=== PATIENT | female | born 1995 | race American Indian/Alaskan Native ===

== ENCOUNTER 2019-03-20 07:54 | Emergency (ER) | payer OTHER ==
[2019-03-20] MEDS ORDERED: PEPCID IV ONE (09:29)
[2019-03-20] MEDS ORDERED: ZOFRAN IV ONE (09:29)
[2019-03-20] MEDS ORDERED: NACL 0.9% 1000 ML 1,000 ML IV ONE (09:29)
[2019-03-20] MEDS ORDERED: TORADOL IV ONE (09:29)
[2019-03-20 10:11] LABS: Basophils % (Auto) 0.3 % (0.0-1.8); Eosinophils # (Auto) 0.1 K/mm3 (0.0-0.4); Eosinophils % (Auto) 0.7 % (0.0-4.3); Hematocrit 35.7 % (30.3-42.9); Hemoglobin 12.1 gm/dl (10.1-14.3); Lymphocytes # (Auto) 1.4 K/mm3 (1.2-5.4); Lymphocytes % (Auto) 16.3 % (13.4-35.0); Mean Corpuscular HGB Conc 34 % (30-34); Mean Corpuscular Volume 86 fl (79-97); Monocytes # (Auto) 0.7 K/mm3 (0.0-0.8); Monocytes % (Auto) 8.3 % (0.0-7.3); Platelet Count 271 K/mm3 (140-440); Red Blood Count 4.15 M/mm3 (3.65-5.03)
[2019-03-20 10:31] LABS: Alanine Aminotransferase 13 units/L (7-56); BUN/Creatinine Ratio 14; Blood Urea Nitrogen 11 mg/dL (7-17); Calcium 9.3 mg/dL (8.4-10.2); Hemolysis Index 3
--- NOTE | 2019-03-20 12:18 | Cat Scan Report ---
CT abdomen pelvis w con INDICATION / CLINICAL INFORMATION: Diffuse right abdominal pain with nausea, vomiting and diarrhea for 4 days. TECHNIQUE: The patient received 100 cc Isovue-[address] scans at this location are performed usi ng CT dose reduction for MOODYRA by means of automated exposure control. COMPARISON: None available. FINDINGS: ABDOMEN: The liver, spleen, gallbladder, bile ducts, pancreas, adrenal glands, and kidneys demonstrat e no significant abnormality. No adenopathy is seen. There is a small calcified granuloma in the righ t lower lobe. PELVIS: There is a mild amount of free fluid in the cul-de-sac. There are small bilateral ovarian cys ts which are likely physiologic. The uterus is normal. The distal ureters and urinary bladder are nor mal. There is mild increased fluid in small bowel loops in the lower abdomen and pelvis. I see no evidence of bowel wall thickening or obstruction. A normal appendix is present and there is no evidence of di verticulitis. I do not identify a hernia. No osseous abnormality is seen IMPRESSION: 1. Mild increase fluid in distal small bowel loops without significant wall thickening or obstruction . The findings may be related to a low-grade enteritis. 2. Mild free fluid in the cul-de-sac and small bilateral ovarian cysts are likely physiologic. Signer Name: Jason Sanchez MD Signed: 03/20/2019 12:13 PM Workstation Name: [id number]
--- NOTE | 2019-03-20 12:32 | Emergency Department Report ---
Vomiting/Diarrhea - HPI Chief Complaint: Abdominal Pain Stated Complaint: SHARP IN RT SIDE/RIB PAIN Time Seen by Provider: 03/20/19 09:16 Duration: 2 Days Severity: moderate Nausea/Vomiting Severity: Mild (with vomiting) Diarrhea Severity: Moderate Pain Location: Generalized Pain Severity: Moderate (crampy) Symptoms: Yes Watery Diarrhea, No Bloody diarrhea, No Fever, No Able to Tolerate Fluids, No Recent Unusual Foods, No Recent Untreated Water, No Recent use of Antibiotics, No Family w/ Similar Symptoms, No Contacts w/ Similar Symptoms, No Rash, No Hematuria, No Recent URI Symptoms ED Review of Systems ROS: Stated complaint: SHARP IN RT SIDE/RIB PAIN Other details as noted in HPI Comment: All other systems reviewed and negative ED Past Medical Hx - Past Medical History Previous Medical History?: No - Surgical History Past Surgical History?: No - Social History Smoking Status: Light Tobacco Smoker Substance Use Type: Alcohol, Marijuana - Medications Home Medications: Home Medications Medication Instructions Recorded Confirmed Last Taken Type Dicyclomine [Bentyl] 20 mg PO QID #10 tablet 03/20/19 Unknown Rx Diphenoxylate/Atropine [Lomotil] 1 tab PO Q4H PRN #10 tablet 03/20/19 Unknown Rx Ondansetron [Zofran Odt] 4 mg PO Q8HR #10 tab.rapdis 03/20/19 Unknown Rx traMADol [Ultram] 50 mg PO Q6HR PRN #10 tablet 03/20/19 Unknown Rx Vomiting Diarrhea Exam - Exam General: Vital signs noted. No distress. Alert and acting appropriately. HEENT: Yes Moist Mucous Membranes, No Pharyngeal Erythema, No Pharyngeal Exudates, No Rhinorrhea, No Conjuctival Injection, No Frontal Tenderness, No Maxillary Tenderness Neck: No Adenopathy, No Rigidity Lungs: Yes Clear Lung Sounds, Yes Good Air Exchange, No Wheezes, No Stridor, No Cough, No Nasal Flaring, No Retractions, No Use of Accessory Muscles Heart exam: Regular: Yes, Murmur: No, Tachycardia: No Abdomen: Tenderness: Yes (diffuse), Peritoneal Signs: No, Distention: No, Hyperactive Bowel sounds: No Skin exam: Rash: No, Edema: No, Normal turgor: Yes Neurologic: Alert and oriented, no deficits. Musculoskeletal: Unremarkable. ED Course Vital Signs 03/20/19 03/20/19 08:10 09:54 Temperature 98.5 F Pulse Rate 95 H Respiratory 18 16 Rate Blood Pressure 121/72 O2 Sat by Pulse 100 Oximetry ED Medical Decision Making - Lab Data Result diagrams: 03/20/19 09:38 03/20/19 09:38 Lab Results 03/20/19 03/20/19 03/20/19 Range/Units 09:38 09:38 09:38 WBC 8.4 (4.5-11.0) K/mm3 RBC 4.15 (3.65-5.03) M/mm3 Hgb 12.1 (10.1-14.3) gm/dl Hct 35.7 (30.3-42.9) % MCV 86 (79-97) fl MCH 29 (28-32) pg MCHC 34 (30-34) % RDW 14.0 (13.2-15.2) % Plt Count 271 (140-440) K/mm3 Lymph % (Auto) 16.3 (13.4-35.0) % [place] % (Auto) 8.3 H (0.0-7.3) % Eos % (Auto) 0.7 (0.0-4.3) % Baso % (Auto) 0.3 (0.0-1.8) % Lymph # 1.4 (1.2-5.4) K/mm3 [place] # 0.7 (0.0-0.8) K/mm3 Eos # 0.1 (0.0-0.4) K/mm3 Baso # 0.0 (0.0-0.1) K/mm3 Seg Neutrophils % 74.4 H (40.0-70.0) % Seg Neutrophils # 6.2 (1.8-7.7) K/mm3 Sodium 138 (137-145) mmol/L Potassium 4.9 (3.6-5.0) mmol/L Chloride 103.8 (98-107) mmol/L Carbon Dioxide 26 (22-30) mmol/L Anion Gap 13 mmol/L BUN 11 (7-17) mg/dL Creatinine 0.8 (0.7-1.2) mg/dL Estimated GFR > 60 ml/min BUN/Creatinine Ratio 14 % Glucose 84 (65-100) mg/dL Calcium 9.3 (8.4-10.2) mg/dL Total Bilirubin 0.20 (0.1-1.2) mg/dL AST 15 (5-40) units/L ALT 13 (7-56) units/L Alkaline Phosphatase 103 (35-129) units/L Total Protein 7.4 (6.3-8.2) g/dL Albumin 4.0 (3.9-5) g/dL Albumin/Globulin Ratio 1.2 % Lipase 23 (13-60) units/L HCG, Qual Negative (Negative) - Radiology Data [facility] [address] [id number] Cat Scan Report Signed Patient: DAYANA LEVY MR#: [id number] : 1995 Acct:[id number] Age/Sex: 24 / F ADM Date: 03/20/19 Loc: ED Attending Dr: Ordering Physician: SHIRLEY LAROSE MD Date of Service: 03/20/19 Procedure(s): CT abdomen pelvis w con Accession Number(s): [id number] cc: SHIRLEY LAROSE MD CT abdomen pelvis w con INDICATION / CLINICAL INFORMATION: Diffuse right abdominal pain with nausea, vomiting and diarrhea for 4 days. TECHNIQUE: The patient received 100 cc Isovue-[address] scans at this location are performed using CT dose reduction for ALARA by means of automated exposure control. COMPARISON: None available. FINDINGS: ABDOMEN: The liver, spleen, gallbladder, bile ducts, pancreas, adrenal glands, and kidneys demonstrate no significant abnormality. No adenopathy is seen. There is a small calcified granuloma in the right lower lobe. PELVIS: There is a mild amount of free fluid in the cul-de-sac. There are small bilateral ovarian cysts which are likely physiologic. The uterus is normal. The distal ureters and urinary bladder are normal. There is mild increased fluid in small bowel loops in the lower abdomen and pelvis. I see no evidence of bowel wall thickening or obstruction. A normal appendix is present and there is no evidence of diverticulitis. I do not identify a hernia. No osseous abnormality is seen IMPRESSION: 1. Mild increase fluid in distal small bowel loops without significant wall thickening or obstruction. The findings may be related to a low-grade enteritis. 2. Mild free fluid in the cul-de-sac and small bilateral ovarian cysts are likely physiologic. Signer Name: Jason Sanchez MD Signed: 03/20/2019 12:13 PM Workstation Name: [id number] Transcribed By: RT Dictated By: Jason Sanchez MD Electronically Authenticated By: Jason Sanchez MD Signed Date/Time: 03/20/19 1213 - Medical Decision Making Patient with a normal white count and a CT with no bowel wall thickening. The patient likely with viral gastroenteritis. Patient was hydrated given this for symptomatically relief and she is feeling some improvement. Patient be discharged home. Critical care attestation.: If time is entered above; I have spent that time in minutes in the direct care of this critically ill patient, excluding procedure time. ED Disposition Clinical Impression: Viral gastroenteritis Disposition: DC-01 TO HOME OR SELFCARE Is pt being admited?: No Does the pt Need Aspirin: No Condition: Stable Instructions: Gastroenteritis (ED) Referrals: JER CHISHOLM MD [Primary Care Provider] - 3-5 Days Time of Disposition: 12:31
[2019-03-20 12:47] VITALS: BP 120/76
== END 2019-03-20 12:48 | disposition home or self-care (01) ==
LOC: ED 07:54
DX: A08.4 Viral intestinal infection, unspecified (principal); F17.200 Nicotine dependence, unspecified, uncomplicated
CPT/HCPCS: 36415; 74177; 80053; 83690; 84703; 85025; 96361; 96374; 96375; 99284; J1885; J2405; J7030; Q9967

== ENCOUNTER 2019-04-19 20:22 | Emergency (ER) | payer OTHER ==
[2019-04-19 20:33] VITALS: BP 123/72
--- NOTE | 2019-04-19 20:52 | Event Note ---
ED Screening Note Date of service: 04/19/19 Time: 20:50 ED Screening Note: 24 y/o comes in for bilateral eye irritation time 1 week. This initial assessment/diagnostic orders/clinical plan/treatment(s) is/are subject to change based on patients health status, clinical progression and re-assessment by fellow clinical providers in the ED. Further treatment and workup at subsequent clinical providers discretion. Patient/guardian urged not to elope from the ED as their condition may be serious if not clinically assessed and managed. Initial orders include:
--- NOTE | 2019-04-19 22:39 | Emergency Department Report ---
[facility] Chief Complaint: Eye Problems Stated Complaint: BILATERAL PINK EYE Time Seen by Provider: 04/19/19 20:50 Duration: 5 Days Side: Bilateral Severity: moderate Symptoms: Yes Eye Itching, Yes Eye Redness, Yes Eye Pain, Yes Mucous Drainage, Yes Purulent Drainage, Yes H/O Allergic Rhinitis, Yes Fever, Yes Headache, No Blurred Vision, No Preceding URI, No Contact Lens Use, No Trauma Other History: pt presents for bilat pink eye x 1 week on cipro ophthal, pendin ophthal appointment, however complains of itching, eye mucus, yellow /green, pt denies fever or chills no dizziness no lightheadedness no ED Review of Systems ROS: Stated complaint: BILATERAL PINK EYE Other details as noted in HPI Constitutional: denies: chills, fever Eyes: denies: eye pain, eye discharge, vision change ENT: denies: ear pain, throat pain, hearing loss, epistaxis, congestion Respiratory: denies: cough, shortness of breath, SOB with exertion, SOB at rest, wheezing Cardiovascular: denies: chest pain Endocrine: no symptoms reported Gastrointestinal: denies: abdominal pain, nausea, vomiting, diarrhea Genitourinary: denies: urgency, dysuria, discharge Musculoskeletal: denies: back pain, joint swelling, arthralgia Skin: denies: rash, lesions Neurological: confusion. denies: weakness, paresthesias Psychiatric: denies: anxiety, depression Hematological/Lymphatic: denies: easy bleeding, easy bruising ED Past Medical Hx - Social History Smoking Status: Current Every Day Smoker Substance Use Type: None - Medications Home Medications: Home Medications Medication Instructions Recorded Confirmed Last Taken Type Dicyclomine [Bentyl] 20 mg PO QID #10 tablet 03/20/19 Unknown Rx Diphenoxylate/Atropine [Lomotil] 1 tab PO Q4H PRN #10 tablet 03/20/19 Unknown Rx Ondansetron [Zofran Odt] 4 mg PO Q8HR #10 tab.rapdis 03/20/19 Unknown Rx traMADol [Ultram] 50 mg PO Q6HR PRN #10 tablet 03/20/19 Unknown Rx Ibuprofen [Motrin 800 MG tab] 800 mg PO Q8HR PRN #30 tablet 04/19/19 Unknown Rx Ketotifen Fumarate [Zaditor] 2 drop OP BID #5 ml 04/19/19 Unknown Rx Polymyxin B Sulf/Trimethoprim 2 drops OP Q4H 10 Days #10 ml 04/19/19 Unknown Rx [Polytrim Eye Drops] [facility] Exam - Exam General: Vital signs noted. No distress. Alert and acting appropriately. Eye Exam: Both Injection, Both EOMI, Both Mucous Discharge, Neither Chemosis, Neither Abnormal Pupil, Neither Eye Foreign Body, Neither Lid Foreign Body HEENT: No Nasal Congestion, No Pharyngeal Erythema Remainder of HEENT: Normal Lungs: Yes Clear Lung Sounds, Yes Good Air Exchange, No Wheezes, No Stridor, No Cough, No Nasal Flaring, No Retractions, No Use of Accessory Muscles ED Course Vital Signs 04/19/19 20:27 Temperature 98.0 F Pulse Rate 89 Respiratory 16 Rate Blood Pressure 123/72 O2 Sat by Pulse 100 Oximetry ED Medical Decision Making - Medical Decision Making This is conjunctivitis, plan polytirm, zaditor ibuprofen, follow up with ophthalmolotist in 2-3 days return to ed if symptoms worsen , pt verbalized agreement and understanding of same. Critical care attestation.: If time is entered above; I have spent that time in minutes in the direct care of this critically ill patient, excluding procedure time. ED Disposition Clinical Impression: Conjunctivitis Qualifiers: Conjunctivitis type: acute Acute conjunctivitis type: viral Laterality: right Qualified Code(s): B30.9 - Viral conjunctivitis, unspecified Disposition: DC-01 TO HOME OR SELFCARE Is pt being admited?: No Does the pt Need Aspirin: No Condition: Stable Instructions: Conjunctivitis (ED) Prescriptions: Ibuprofen [Motrin 800 MG tab] 800 mg PO Q8HR PRN #30 tablet PRN Reason: Pain , Severe (7-10) Polymyxin B Sulf/Trimethoprim [Polytrim Eye Drops] 2 drops OP Q4H 10 Days #10 ml Ketotifen Fumarate [Zaditor] 2 drop OP BID #5 ml Referrals: JER CHISHOLM MD [Primary Care Provider] - 3-5 Days MOISES BROWN MD [Staff Physician] - 3-5 Days Forms: Work/School Release Form(ED) Time of Disposition: 22:45
== END 2019-04-19 22:50 | disposition home or self-care (01) ==
LOC: ED 20:22
DX: H10.9 Unspecified conjunctivitis (principal); F17.200 Nicotine dependence, unspecified, uncomplicated; Z79.899 Other long term (current) drug therapy
CPT/HCPCS: 99282

== ENCOUNTER 2019-07-28 19:46 | Emergency (ER) | payer MEDICAID, OTHER ==
[2019-07-28 19:53] VITALS: BP 108/67
--- NOTE | 2019-07-28 20:22 | Emergency Department Report ---
Blank Doc - Documentation Documentation: 24-year-old female that presents with abdominal pain. Denies any n/v or vaginal bleeding. Stated is 9 weeks . Has OBGYN but never had ultrasound before. This initial assessment/diagnostic orders/clinical plan/treatment(s) is/are subject to change based on patient's health status, clinical progression and re- assessment by fellow clinical providers in the ED. Further treatment and workup at subsequent clinical providers discretion. Patient/guardians urged not to elope from the ED as their condition may be serious if not clinically assessed and managed. Initial orders include: 1- Patient sent to [facility] for further evaluation and treatment 2- labs 3- UA 4- US OB
[2019-07-28 21:18] LABS: Bacteria,Urine 1+ /HPF (Negative); Bilirubin,Urine NEG (Negative); Blood,Urine NEG (Negative); Color,Urine Straw (Yellow); Protein,Urine <15 mg/dL mg/dL (Negative); Urobilinogen,Urine < 2.0 mg/dL (<2.0)
[2019-07-28] MEDS ORDERED: ONDANSETRON 4 MG ODT TAB PO ONE (21:33)
[2019-07-28 21:55] LABS: Hematocrit 37.9 % (30.3-42.9); Hemoglobin 12.5 gm/dl (10.1-14.3); Mean Corpuscular HGB Conc 33 % (30-34); Mean Corpuscular Volume 87 fl (79-97); Platelet Count 214 K/mm3 (140-440); Red Blood Count 4.34 M/mm3 (3.65-5.03); Red Cell Distribution Width 14.6 % (13.2-15.2)
[2019-07-28 22:01] LABS: BUN/Creatinine Ratio 14; Blood Urea Nitrogen 10 mg/dL (7-17); Calcium 9.2 mg/dL (8.4-10.2); Hemolysis Index 15
--- NOTE | 2019-07-28 22:01 | Ultrasound Report ---
ULTRASOUND OBSTETRIC INDICATION / CLINICAL INFORMATION: Abdomen pain. Clinical Gestational Age (GA): 8 weeks 5 days TECHNIQUE: Transabdominal. COMPARISON: None available. FINDINGS: GESTATIONAL SAC: Well-defined oval shape and intrauterine in location. YOLK SAC: No significant abnormality. EMBRYO/FETUS: No significant abnormality. - [place]-Rump Length = 2.0 cm = 8 weeks, 4 day(s). - Heart Rate, beats per minute (if present) = 179 ADNEXA: No significant abnormality of the right ovary. The left ovary was not seen.. FREE FLUID: None. ADDITIONAL FINDINGS: None. IMPRESSION: 1. Single, living intrauterine with estimated sonographic age of 8 weeks, 4 day(s). 2. Nonvisualized left ovary. Signer Name: Ezequiel Mathis MD Signed: 07/28/2019 9:56 PM Workstation Name: [id number]
--- NOTE | 2019-07-28 22:15 | Emergency Department Report ---
ED Abdominal Pain HPI - General Chief Complaint: Abdominal Pain Stated Complaint: ABD PAIN; 9 WEEKS Time Seen by Provider: 07/28/19 20:21 Source: patient Mode of arrival: Ambulatory Limitations: No Limitations - History of Present Illness Initial Comments: Ms. Sotomayor is a 24-year-old -[place] female A0. Presents for bilateral lower abdominal pain with a.m. nausea and vomiting 1 week. Patient denies vaginal bleeding or vaginal discharge no fever or chills. Patient has seen CELLULAR PHONE REPAIRER on Zofran when necessary for nausea and vomiting however she is out of medication. Patient states she has not been sexually active since diagnosis, states she cannot see CELLULAR PHONE REPAIRER for another week. pt is currently tolerating po intake without n/v, there is no fever or chills. MD Complaint: abdominal pain Onset/Timin -: week(s) Location: LLQ, RLQ Radiation: LLQ, RLQ Migration to: LLQ, RLQ Severity: moderate Severity scale (0 -10): 4 Quality: cramping Consistency: intermittent Improves With: nothing Worsens With: nothing Associated Symptoms: nausea, vomiting - Related Data LMP Date: 06/27/19 LMP (females 10-50): 2 months Previous Rx's Medication Instructions Recorded Last Taken Type Dicyclomine [Bentyl] 20 mg PO QID #10 tablet 03/20/19 Unknown Rx Diphenoxylate/Atropine [Lomotil] 1 tab PO Q4H PRN #10 tablet 03/20/19 Unknown Rx Ondansetron [Zofran Odt] 4 mg PO Q8HR #10 tab.rapdis 03/20/19 Unknown Rx traMADoL [Ultram] 50 mg PO Q6HR PRN #10 tablet 03/20/19 Unknown Rx Ibuprofen [Motrin 800 MG tab] 800 mg PO Q8HR PRN #30 tablet 04/19/19 Unknown Rx Ketotifen Fumarate [Zaditor] 2 drop OP BID #5 ml 04/19/19 Unknown Rx Polymyxin B Sulf/Trimethoprim 2 drops OP Q4H 10 Days #10 ml 04/19/19 Unknown Rx [Polytrim Eye Drops] Acetaminophen [Acetaminophen TAB] 650 mg PO Q6HR PRN #30 tablet 07/28/19 Unknown Rx Nitrofurantoin [place]/M-Cryst 100 mg PO BID 7 Days #14 capsule 07/28/19 Unknown Rx [Macrobid CAP] Ondansetron [Zofran Odt] 4 mg PO Q8HR PRN #12 tab.rapdis 07/28/19 Unknown Rx Allergies Allergy/AdvReac Type Severity Reaction Status Date / Time No Known Allergies Allergy Verified 04/19/19 20:24 ED Review of Systems ROS: Stated complaint: ABD PAIN; 9 WEEKS Other details as noted in HPI Constitutional: denies: chills, fever Eyes: denies: eye pain, eye discharge, vision change ENT: denies: ear pain, throat pain Respiratory: no symptoms reported Cardiovascular: denies: chest pain, palpitations Endocrine: no symptoms reported Gastrointestinal: denies: abdominal pain, nausea, vomiting, diarrhea Genitourinary: denies: urgency, dysuria, discharge Musculoskeletal: denies: back pain, joint swelling, arthralgia Skin: denies: rash, lesions Neurological: as per HPI Psychiatric: denies: anxiety, depression Hematological/Lymphatic: denies: easy bleeding, easy bruising ED Past Medical Hx - Past Medical History Previous Medical History?: No - Surgical History Past Surgical History?: No - Social History Smoking Status: Never Smoker Substance Use Type: None - Medications Home Medications: Home Medications Medication Instructions Recorded Confirmed Last Taken Type Dicyclomine [Bentyl] 20 mg PO QID #10 tablet 03/20/19 Unknown Rx Diphenoxylate/Atropine [Lomotil] 1 tab PO Q4H PRN #10 tablet 03/20/19 Unknown Rx Ondansetron [Zofran Odt] 4 mg PO Q8HR #10 tab.rapdis 03/20/19 Unknown Rx traMADoL [Ultram] 50 mg PO Q6HR PRN #10 tablet 03/20/19 Unknown Rx Ibuprofen [Motrin 800 MG tab] 800 mg PO Q8HR PRN #30 tablet 04/19/19 Unknown Rx Ketotifen Fumarate [Zaditor] 2 drop OP BID #5 ml 04/19/19 Unknown Rx Polymyxin B Sulf/Trimethoprim 2 drops OP Q4H 10 Days #10 ml 04/19/19 Unknown Rx [Polytrim Eye Drops] Acetaminophen [Acetaminophen TAB] 650 mg PO Q6HR PRN #30 tablet 07/28/19 Unknown Rx Nitrofurantoin [place]et/M-Cryst 100 mg PO BID 7 Days #14 capsule 07/28/19 Unknown Rx [Macrobid CAP] Ondansetron [Zofran Odt] 4 mg PO Q8HR PRN #12 tab.rapdis 07/28/19 Unknown Rx ED Physical Exam - General Limitations: No Limitations General appearance: alert, in no apparent distress - Head Head exam: Present: atraumatic, normocephalic - Eye Eye exam: Present: normal appearance, PERRL, EOMI Pupils: Present: normal accommodation - ENT ENT exam: Present: mucous membranes moist - Neck Neck exam: Present: normal inspection, full ROM. Absent: tenderness - Respiratory Respiratory exam: Present: normal lung sounds bilaterally. Absent: respiratory distress - Cardiovascular Cardiovascular Exam: Present: regular rate, normal rhythm, normal heart sounds. Absent: systolic murmur, diastolic murmur, rubs, gallop - GI/Abdominal GI/Abdominal exam: Present: soft, tenderness (bilat lower abd), normal bowel sounds. Absent: distended, guarding, rebound, rigid, bruit, hernia - Rectal Rectal exam: Present: deferred - External exam: Present: other (exam deferred by patient) - Extremities Exam Extremities exam: Present: normal inspection, full ROM, normal capillary refill. Absent: tenderness, pedal edema, joint swelling - Back Exam Back exam: Present: normal inspection, full ROM. Absent: tenderness, CVA tenderness (R), CVA tenderness (L), muscle spasm, paraspinal tenderness, vertebral tenderness - Neurological Exam Neurological exam: Present: alert, oriented X3, CN II-XII intact, normal gait - Psychiatric Psychiatric exam: Present: normal affect, normal mood - Skin Skin exam: Present: warm, dry, intact, normal color. Absent: rash ED Course Vital Signs 07/28/19 19:50 Temperature 98.9 F Pulse Rate 85 Respiratory 18 Rate Blood Pressure 108/67 O2 Sat by Pulse 98 Oximetry ED Medical Decision Making - Lab Data Result diagrams: 07/28/19 21:38 07/28/19 20:26 Labs 07/28/19 07/28/19 07/28/19 20:26 20:26 21:38 WBC 5.8 RBC 4.34 Hgb 12.5 Hct 37.9 MCV 87 MCH 29 MCHC 33 RDW 14.6 Plt Count 214 Sodium 134 L Potassium 4.2 Chloride 101.4 Carbon Dioxide 20 L Anion Gap 17 BUN 10 Creatinine 0.7 Estimated GFR > 60 BUN/Creatinine Ratio 14 Glucose 87 Calcium 9.2 HCG, Quant [id number] H Urine Color Urine Turbidity Urine pH Ur Specific [place] Urine Protein Urine Glucose (UA) Urine Ketones Urine Blood Urine Nitrite Urine Bilirubin Urine Urobilinogen Ur Leukocyte Esterase Urine WBC (Auto) Urine RBC (Auto) U Epithel Cells (Auto) Urine Bacteria (Auto) Blood Type 07/28/19 07/28/19 21:38 Unknown WBC RBC Hgb Hct MCV MCH MCHC RDW Plt Count Sodium Potassium Chloride Carbon Dioxide Anion Gap BUN Creatinine Estimated GFR BUN/Creatinine Ratio Glucose Calcium HCG, Quant Urine Color Straw Urine Turbidity Clear Urine pH 6.0 Ur Specific [place] 1.015 Urine Protein <15 mg/dl Urine Glucose (UA) Neg Urine Ketones Neg Urine Blood Neg Urine Nitrite Neg Urine Bilirubin Neg Urine Urobilinogen < 2.0 Ur Leukocyte Esterase Sm Urine WBC (Auto) 1.0 Urine RBC (Auto) 1.0 U Epithel Cells (Auto) 3.0 Urine Bacteria (Auto) 1+ Blood Type O POSITIVE - Radiology Data Radiology results: report reviewed, image reviewed ULTRASOUND OBSTETRIC INDICATION / CLINICAL INFORMATION: Abdomen pain. Clinical Gestational Age (GA): 8 weeks 5 days TECHNIQUE: Transabdominal. COMPARISON: None available. FINDINGS: GESTATIONAL SAC: Well-defined oval shape and intrauterine in location. YOLK SAC: No significant abnormality. EMBRYO/FETUS: No significant abnormality. - [place]-Rump Length = 2.0 cm = 8 weeks, 4 day(s). - Heart Rate, beats per minute (if present) = 179 ADNEXA: No significant abnormality of the right ovary. The left ovary was not seen.. FREE FLUID: None. ADDITIONAL FINDINGS: None. IMPRESSION: 1. Single, living intrauterine with estimated sonographic age of 8 weeks, 4 day(s). 2. Nonvisualized left ovary. Signer Name: Ezequiel Mathis MD Signed: 07/28/2019 9:56 PM Workstation Name: [id number] Transcribed By: INOCENCIO Dictated By: Ezequiel Mathis MD Electronically Authenticated By: Ezequiel Mathis MD Signed Date/Time: 07/28/192155 DD/ 53 TD/TT: - Medical Decision Making symptoms improved, US OB: Single IUP , 8 weeks and 4 days, hc, abo: O pos. pt continues to tolerate po intake without symptoms, pt appearw well nontoxic, well hydrated, well nourished. plan: zofran, tylenol, follow up with OBGYN, pt verbalized agreement and understanding of discharge plan. Critical care attestation.: If time is entered above; I have spent that time in minutes in the direct care of this critically ill patient, excluding procedure time. ED Disposition Clinical Impression: Abdominal pain during Qualifiers: Trimester: first trimester Qualified Code(s): O26.891 - Other specified related conditions, first trimester; R10.9 - Unspecified abdominal pain Disposition: TO HOME OR SELFCARE Is pt being admited?: No Does the pt Need Aspirin: No Condition: Stable Instructions: Urinary Tract Infection in Women (ED), Abdominal Pain in (ED) Prescriptions: Acetaminophen [Acetaminophen TAB] 650 mg PO Q6HR PRN #30 tablet PRN Reason: Pain Nitrofurantoin [place]et/M-Cryst [Macrobid CAP] 100 mg PO BID 7 Days #14 capsule Ondansetron [Zofran Odt] 4 mg PO Q8HR PRN #12 tab.rapdis PRN Reason: nausea and vomting Referrals: SHANNA FONTENOT MD [Staff Physician] - 3-5 Days Forms: Work/School Release Form(ED) Time of Disposition: 22:26
== END 2019-07-28 22:44 | disposition home or self-care (01) ==
LOC: ED 19:46
DX: O26.891 Other specified pregnancy related conditions, first trimester (principal); R10.32 Left lower quadrant pain; R10.31 Right lower quadrant pain; Z3A.08 8 weeks gestation of pregnancy
CPT/HCPCS: 36415; 76801; 80048; 81001; 84702; 85027; 86900; 86901; Q0162

== ENCOUNTER 2019-11-26 12:54 | Emergency (ER) | payer MEDICAID ==
[2019-11-26 13:01] VITALS: BP 133/72
== END 2019-11-26 13:00 | disposition left against medical advice (07) ==
LOC: ED 12:54
DX: R05 Cough (principal); J02.9 Acute pharyngitis, unspecified; Z53.21 Procedure and treatment not carried out due to patient leaving prior to being seen by health care provider

== ENCOUNTER 2020-03-04 15:58 | Outpatient (CLI) | payer MEDICAID ==
[2020-03-04 17:32] VITALS: BP 119/69
== END 2020-03-04 16:45 | disposition home or self-care (01) ==
LOC: TRG 15:58 → APU 16:01 → TRG 16:45
PROVIDERS: ATTEND Obstetrics & Gynecology
DX: O47.03 False labor before 37 completed weeks of gestation, third trimester (principal); Z3A.37 37 weeks gestation of pregnancy
CPT/HCPCS: 59025